=== PATIENT | female | born 1990 | race Caucasian/White ===

== ENCOUNTER 2020-05-22 09:09 | Emergency (ER) | payer OTHER ==
[~2020-05-22] VITALS: Ht 167.6 cm; Wt 51.7 kg
--- NOTE | 2020-05-22 09:22 | NUR ---
LATRICE FROM HOME TO ER BED 12. INTOXICATED. NOT IN RESOP DISTRESS, BREATHING EVEN AND UNLABORED. BROUGHT IN FOR BEING ALTERED D/T CONSUMPTION OFA BOTTLE OF WINE. MD WAS AT THE BEDSIDE FOR EVAL. ORDERS RECEIVED, NOTED AND CARRIED OUT. IV LINE ESTABLISHED ALREADY BY THE EMS. REPORTED GIVEN NS AND ZOFRAN 4MG. PT IN ON MONITOR
[2020-05-22] MEDS ORDERED: IV NS 0.9% 1,000 ML BAG IV ONE (09:30)
[2020-05-22 09:35] LABS: BASOPHILS # (AUTO) 0.1 /CMM (0.0-0.2); HEMOGLOBIN 12.2 g/dL (11.5-14.8); MONOCYTES # (AUTO) 1.6 /CMM (0.1-1.30); MONOCYTES % (AUTO) 18.4 % (2.0-12.0); NEUTROPHILS # (AUTO) 2.9 /CMM (1.8-8.9)
[2020-05-22 09:41] LABS: CALCIUM, SERUM 8.3 mg/dL (8.5-10.1); CREATININE 1.7 mg/dL (0.6-1.3); POTASSIUM 3.7 mmol/L (3.5-5.1)
[2020-05-22 09:42] LABS: BASOPHILS % (AUTO) 0.7 % (0.0-2.0); HEMATOCRIT 37 % (33-45); LYMPHOCYTES # (AUTO) 4.2 /CMM (0.8-4.8); LYMPHOCYTES % (AUTO) 47.7 % (20.0-44.0); MEAN CORPUSCULAR HGB CONC 33 g/dl (31.0-36.0); MEAN CORPUSCULAR VOLUME 102 fL (82-100); NEUTROPHILS % (AUTO) 32.2 % (43.0-81.0); PLATELET COUNT (AUTO) 386 /CMM (150-450); RED BLOOD CELL COUNT(AUTO) 3.62 MIL/uL (4.0-5.2); WHITE BLOOD COUNT (AUTO) 8.9 K/uL (4.3-11.0)
[2020-05-22 09:48] LABS: ALBUMIN 3.3 g/dL (3.4-5.0); BILIRUBIN,DIRECT 0.1 mg/dL (0.0-0.2); BILIRUBIN,TOTAL 0.2 mg/dL (0.2-1.0); TOTAL PROTEIN, SERUM 6.9 g/dL (6.4-8.2)
[2020-05-22] MEDS ORDERED: ONDANSETRON HCL/PF - ER 4 MG/2 ML VIAL IV ONE (10:00)
[2020-05-22] MEDS ORDERED: ONDANSETRON HCL/PF 4 MG/2 ML VIAL ONE (10:18)
--- NOTE | 2020-05-22 10:26 | NUR ---
urine collected and sent to the lab
[2020-05-22 11:16] LABS: EOSINOPHILS % (MANUAL) 2 % (0-4); LYMPHOCYTES % (MANUAL) 49 % (16-48); MONOCYTES % (MANUAL) 19 % (0-11.0); NEUTROPHILS % (MANUAL) 30 (42-76)
[2020-05-22 11:17] LABS: BILIRUBIN,URINE Negative (NEGATIVE); COLOR,URINE YELLOW (YELLOW); LEUKOCYTE ESTERASE ,URINE Negative (NEGATIVE); NITRITE, URINE Negative (NEGATIVE); PROTEIN,URINE Negative (NEGATIVE); UGLUCOSE Negative (NEGATIVE); UROBILINOGEN,URINE 0.2 EU/dL (0.2)
--- NOTE | 2020-05-22 11:40 | NUR ---
Consulting Psychologist: access services librarian consult requested for alcohol use. Patient is a 29-year-old, white female. SW spoke to patient's RN Iban who stated that patient's ETOH levels are high and asked for this SW to come at a later time when the patient is medically clear. SW will follow up with nursing staff to meet with the patient at a later time.
[2020-05-22 14:24] LABS: ALBUMIN 3.1 g/dL (3.4-5.0); BILIRUBIN,DIRECT 0.1 mg/dL (0.0-0.2); BILIRUBIN,TOTAL 0.2 mg/dL (0.2-1.0); TOTAL PROTEIN, SERUM 6.4 g/dL (6.4-8.2)
--- NOTE | 2020-05-22 14:53 | NUR ---
RENEE PARKER [phone]
--- NOTE | 2020-05-22 15:05 | NUR ---
Physical Therapist note: creative services producer follow up for request for consult. Patient is still not medically cleared and not interviewable at this time. SW will coordinate with nursing staff to meet with the patient at a later time.
--- NOTE | 2020-05-22 19:35 | NUR ---
PT IS AWAKE, ALERT, AND ORIENTED X 4. PROVIDED WITH A MEAL. PT'S AMBULATION TESTED AND ON STEADY GAIT. MD MADE AWARE. MD CLEARED PT FOR DISCHARGE.
[2020-05-22 19:53] VITALS: BP 102/56
--- NOTE | 2020-05-22 19:53 | NUR ---
Patient discharged to home in stable condition. Written and verbal after care instructions given. Patient verbalizes understanding of instruction.IV removed. Catheter intact and site benign. Pressure and 4x4 applied to site. No bleeding noted. Pt ambulatory with a steady gait
== END 2020-05-22 19:54 | disposition home or self-care (01) ==
LOC: ER 09:21
DX: F10.129 Alcohol abuse with intoxication, unspecified (principal); T39.1X5A Adverse effect of 4-Aminophenol derivatives, initial encounter; Y92.89 Other specified places as the place of occurrence of the external cause; R74.9 Abnormal serum enzyme level, unspecified; I10 Essential (primary) hypertension; F41.9 Anxiety disorder, unspecified; Y90.8 Blood alcohol level of 240 mg/100 ml or more
CPT/HCPCS: 36415; 80048; 80076 ×2; 80299 ×2; 80307; 80320; 81003; 84702; 85007; 85025; 96361; 96374; 99285; J2405 ×2; G0480